=== PATIENT | male | born 1960 | race Two or more races ===

== ENCOUNTER → 2020-05-26 | Outpatient (CLI) | payer OTHER | END | disposition home or self-care (01) | LOC: OFIC 805 10:15 | PROVIDERS: ATTEND Otolaryngology | DX: D11.0 Benign neoplasm of parotid gland (principal); H61.23 Impacted cerumen, bilateral ==

== ENCOUNTER 2022-01-24 10:16 | Outpatient (CLI) | payer OTHER | END 2022-01-24 10:18 | disposition home or self-care (01) | LOC: SONOGRAMA 10:16 | PROVIDERS: ATTEND Pathology Anatomic Pathology | DX: D37.030 Neoplasm of uncertain behavior of the parotid salivary glands (principal); D11.9 Benign neoplasm of major salivary gland, unspecified ==